=== PATIENT | male | born 1940 | race Caucasian/White ===

== ENCOUNTER 2018-07-31 13:23 | Day surgery (SDC) | payer MEDICARE, OTHER ==
[~2018-07-31] VITALS: Ht 170.2 cm; Wt 80.0 kg
[~2018-07-31 13:23] MED LIST: CITA40TA5 PO; DABI150C PO; METO-99 PO; MULT-717 PO; TAMS-11 PO; TYLENOL PM PO
[2018-07-31] MEDS ORDERED: GEMCITABINE HCL 2,000 MG in SODIUM CHLORIDE 0.9% 100 ML IS ONE (13:30)
[2018-07-31 13:52] VITALS: BP 127/80
[2018-07-31] MEDS ORDERED: LACTATED RINGERS 1,000 ML IV SCH (13:55)
[2018-07-31 14:30] LABS: INTERNATIONAL NORMALIZED RATIO 0.97 (0.93-1.1); PROTHROMBIN TIME 10.2 Seconds (9.6-11.5)
[2018-07-31] MEDS ORDERED: FENTANYL PF 100 MCG/2ML ONE ×2 (15:00→16:11)
[2018-07-31] MEDS ORDERED: CEFAZOLIN 1,000 MG ONE (15:24)
[2018-07-31] MEDS ORDERED: ROCURONIUM 10MG/ML,5ML ONE (15:24)
[2018-07-31] MEDS ORDERED: ONDANSETRON 2MG/ML, 2ML ONE (15:24)
[2018-07-31] MEDS ORDERED: DEXAMETHASONE 4 MG/ML, 1ML ONE (15:24)
[2018-07-31] MEDS ORDERED: PROPOFOL 10 MG/ML, 20ML ONE (15:24)
[2018-07-31] MEDS ORDERED: SUGAMMADEX 200 MG/2 ML IVPush ONE (15:27)
[2018-07-31] MEDS ORDERED: HYDROmorphone 2 MG/ML, 1ML IVPush PRN (15:30)
[2018-07-31] MEDS ORDERED: ONDANSETRON ODT 8 MG PO PRN (15:30)
[2018-07-31] MEDS ORDERED: ONDANSETRON 2MG/ML, 2ML IV PRN (15:30)
[2018-07-31] MEDS ORDERED: PROMETHAZINE 25 MG/ML, 1ML IV PRN (15:30)
[2018-07-31] MEDS ORDERED: OXYcodone 5 MG/5 ML ORAL.SOL UDC PO PRN (15:30)
[2018-07-31] MEDS ORDERED: ACETAMINOPHEN 325 MG TABLET PO PRN (15:30)
[2018-07-31] MEDS ORDERED: PROMETHAZINE 25 MG SUPP PR PRN (15:30)
[2018-07-31] MEDS: FENTANYL PF 100 MCG/2ML IV PRN ×2 (16:12→16:20)
[2018-07-31 19:23] VITALS: BP 144/85
== END 2018-07-31 20:20 | disposition home or self-care (01) ==
LOC: OR 13:23 → 4NOR 18:59 → OR 20:20
PROVIDERS: ATTEND Student in an Organized Health Care Education/Training Program
DX: C67.3 Malignant neoplasm of anterior wall of bladder (principal); R31.0 Gross hematuria; I48.91 Unspecified atrial fibrillation; J44.9 Chronic obstructive pulmonary disease, unspecified; F41.9 Anxiety disorder, unspecified; Z72.89 Other problems related to lifestyle; Z79.899 Other long term (current) drug therapy; Z87.891 Personal history of nicotine dependence; Z88.8 Allergy status to other drugs, medicaments and biological substances; Z90.49 Acquired absence of other specified parts of digestive tract; Z96.653 Presence of artificial knee joint, bilateral; Z98.890 Other specified postprocedural states; Z80.1 Family history of malignant neoplasm of trachea, bronchus and lung; Z80.3 Family history of malignant neoplasm of breast
CPT/HCPCS: 36415; 51720; 52234; 85610; 85730; 88305; J0690; J1100; J2405; J2704; J3010; J7120; G0378